=== PATIENT | male | born 1960 | race Caucasian/White ===

== ENCOUNTER 2019-05-28 22:04 | Inpatient (IN) | payer SELFPAY ==
[~2019-05-28] VITALS: Ht 182.9 cm; Wt 129.7 kg
--- NOTE | 2019-05-28 22:15 | NUR ---
"I have a wound on the bottom of my L foot." C/o various wounds through whole body. Hx of DM II w/ R BKA. Hx of dialysis. PT WAS WHEELED IN BY STAFF
[2019-05-28] MEDS ORDERED: SODIUM CHLORIDE 0.9% 1,000 ML IV ONE (22:28)
[2019-05-28] MEDS ORDERED: VANCOMYCIN PER PHARMACY IV ONE (22:30)
[2019-05-28] MEDS ORDERED: SODIUM CHLORIDE FLUSH 10ML SYR IVF ONE (22:30)
[2019-05-28] MEDS ORDERED: AMPICILLIN/SULBACTAM 3 GM in SODIUM CHLORIDE 0.9% 100 ML IV ONE (22:30)
[2019-05-28] MEDS ORDERED: MORPHINE SULFATE 4 MG/ML, 1ML IV PRN (22:30)
[2019-05-28] MEDS ORDERED: ONDANSETRON 2MG/ML, 2ML ONE (22:36)
[2019-05-28] MEDS ORDERED: MORPHINE SULFATE 4 MG/ML, 1ML ONE (22:37)
[2019-05-28] MEDS ORDERED: VANCOMYCIN 2,500 MG in SODIUM CHLORIDE 0.9% 500 ML IV ONE (23:00)
[2019-05-28] MEDS ORDERED: ONDANSETRON 2MG/ML, 2ML IVPush ONE (23:00)
[2019-05-28 23:11] LABS: BASOPHILS # (AUTO) 0.11 x10^3/uL (0-0.1); BASOPHILS % (AUTO) 1 % (0-1); EOSINOPHILS # (AUTO) 0.43 x10^3/uL (0-0.4); EOSINOPHILS % (AUTO) 3 % (1-7); LYMPHOCYTES # (AUTO) 2.36 x10^3/uL (1-3.4); LYMPHOCYTES % (AUTO) 16 % (22-44); MD NO; MEAN CORPUSCULAR HGB CONC 32.9 g/dL (33.2-36.2); MEAN CORPUSCULAR VOLUME 88.2 fL (81-97); MONOCYTES # (AUTO) 0.95 x10^3/uL (0.2-0.8); MONOCYTES % (AUTO) 6 % (2-9); NEUTROPHILS # (AUTO) 11.09 x10^3/uL (1.8-6.8); NEUTROPHILS % (AUTO) 74 % (42-75); PLATELET COUNT 251 x10^3/uL (130-400); RED BLOOD COUNT 4.73 x10^6/uL (4.38-5.82); RED CELL DISTRIBUTION WIDTH 17.5 % (9.4-14.8)
[2019-05-28 23:15] LABS: HCT (SEDRATE) 41.8 % (39.2-51.8)
[2019-05-28 23:25] LABS: ALANINE AMINOTRANSFERASE 14 U/L (12-78); ALBUMIN 2.6 g/dL (3.4-5.0); ANION GAP 9 mmol/L (5-15); CALCIUM 8.6 mg/dL (8.5-10.1); CHLORIDE 106 mmol/L (98-107); CREATININE 3.07 mg/dL (0.7-1.3)
[2019-05-28 23:32] LABS: ALKALINE PHOSPHATASE 150 U/L (45-117); BILIRUBIN,TOTAL 0.4 mg/dL (0.2-1.0); TOTAL PROTEIN 7.5 g/dL (6.4-8.2)
--- NOTE | 2019-05-28 23:48 | NUR ---
PT IS DROWSY UNABLE TO OBTAIN HOME MED REC PT WAS BACK TO SLEEP EASILY HELD ALL PAIN MEDS NOT GIVEN MD WAS NOTIFIED
[2019-05-29] MEDS ORDERED: BISACODYL 10 MG SUPP PR PRN
[2019-05-29] MEDS ORDERED: LINEZOLID PMX 600MG/300ML 300 ML IV SCH
[2019-05-29] MEDS ORDERED: POLYETHYLENE GLYCOL 17 GM PACKET PO PRN
[2019-05-29] MEDS ORDERED: ONDANSETRON 2MG/ML, 2ML IVPush PRN
[2019-05-29] MEDS ORDERED: ACETAMINOPHEN 325 MG TABLET PO PRN
--- NOTE | 2019-05-29 00:14 | NUR ---
GIVEN REPORT TO KEITH PEÑA
[2019-05-29 00:15] LABS: HEMOGLOBIN A1C 7.3 % (4.2-6.3)
[2019-05-29 00:27] VITALS: BP 153/73
--- NOTE | 2019-05-29 00:39 | NUR ---
VANCO DOESNT NEED TO BE GIVEN PER DR AARON D/T PT IS ON ZYVOX CHARTED NOT GIVEN PER DR AARON PERMISSION PT IS ON ZYVOX SPOKE TO PHARMACIST VANCO DOESNT NEED TO BE GIVEN
[2019-05-29] MEDS: HEPARIN 5,000 UNITS/ML, 1ML SQ SCH ×2 (00:50→09:42)
[2019-05-29] MEDS: SODIUM CHLORIDE 0.9% 1,000 ML IV SCH ×2 (00:50→11:31)
[2019-05-29] MEDS: PIPERACILLIN/TAZO/PMX 3.375GM 50 ML IV SCH ×2 (05:39→11:31)
[2019-05-29 05:58] LABS: BASOPHILS # (AUTO) 0.04 x10^3/uL (0-0.1); BASOPHILS % (AUTO) 0 % (0-1); EOSINOPHILS # (AUTO) 0.38 x10^3/uL (0-0.4); EOSINOPHILS % (AUTO) 3 % (1-7); LYMPHOCYTES # (AUTO) 2.34 x10^3/uL (1-3.4); LYMPHOCYTES % (AUTO) 17 % (22-44); MD NO; MEAN CORPUSCULAR HEMOGLOBIN 29.1 pg (27.5-34.5); MEAN CORPUSCULAR HGB CONC 33.1 g/dL (33.2-36.2); MEAN PLATELET VOLUME 8.3 fL (7.4-10.4); MONOCYTES # (AUTO) 0.88 x10^3/uL (0.2-0.8); MONOCYTES % (AUTO) 6 % (2-9); NEUTROPHILS % (AUTO) 74 % (42-75); PLATELET COUNT 223 x10^3/uL (130-400); RED BLOOD COUNT 4.09 x10^6/uL (4.38-5.82); RED CELL DISTRIBUTION WIDTH 17.6 % (9.4-14.8)
[2019-05-29 06:07] LABS: CALCIUM 7.9 mg/dL (8.5-10.1); CHLORIDE 108 mmol/L (98-107)
[2019-05-29 06:13] LABS: ALANINE AMINOTRANSFERASE 12 U/L (12-78); ALBUMIN 2.3 g/dL (3.4-5.0); ALKALINE PHOSPHATASE 137 U/L (45-117); ANION GAP 8 mmol/L (5-15); BILIRUBIN,TOTAL 0.3 mg/dL (0.2-1.0); CREATININE 2.87 mg/dL (0.7-1.3); TOTAL PROTEIN 6.5 g/dL (6.4-8.2)
[2019-05-29 06:35] LABS: MICROSCOPIC AUTO
[2019-05-29 06:37] LABS: CULTURE INDICATED? NO
[2019-05-29 06:56] VITALS: BP 145/81
[2019-05-29] MEDS: INSULIN LISPRO 100 UNITS/ML, PEN SQ-INSULIN SCH ×2 (08:00)
[2019-05-29] MEDS ORDERED: SENNA/DOCUSATE TABLET PO SCH (09:00)
[2019-05-29] MEDS ORDERED: GADOBUTROL 10 MMOL/10 ML PFS ONE (09:20)
[2019-05-29] MEDS ORDERED: INSULIN LISPRO 100 UNITS/ML, PEN SQ-INSULIN SCH (13:00)
== END 2019-05-29 12:56 | disposition left against medical advice (07) | DRG 549 ==
LOC: ED 05-29 00:01 → EDIP 05-29 00:21 → 4NOR 05-29 00:25
PROVIDERS: ADMIT Internal Medicine; ATTEND Internal Medicine
PROC: 0T9B70Z Drainage of Bladder with Drainage Device, Via Natural or Artificial Opening (ICD-10-PCS; principal; 2019-05-29)
DX: M00.9 Pyogenic arthritis, unspecified (principal); M86.172 Other acute osteomyelitis, left ankle and foot; L03.116 Cellulitis of left lower limb; E11.69 Type 2 diabetes mellitus with other specified complication; E11.22 Type 2 diabetes mellitus with diabetic chronic kidney disease; E11.65 Type 2 diabetes mellitus with hyperglycemia; E66.01 Morbid (severe) obesity due to excess calories; I12.9 Hypertensive chronic kidney disease with stage 1 through stage 4 chronic kidney disease, or unspecified chronic kidney disease; Z53.21 Procedure and treatment not carried out due to patient leaving prior to being seen by health care provider; N18.3 Chronic kidney disease, stage 3 (moderate); M65.9 Synovitis and tenosynovitis, unspecified; Z68.38 Body mass index [BMI] 38.0-38.9, adult; Z79.4 Long term (current) use of insulin; Z89.511 Acquired absence of right leg below knee
CPT/HCPCS: 36415; 80053; 81001; 82962; 83036; 83605; 84145; 85025; 85651; 86140; 87040; 87070; 87077; 87186; 87205; A9585; G0378; J0295; J1644; J2020; J2543; J7030